=== PATIENT | male | born 1980 | race Caucasian/White ===

== ENCOUNTER 2023-11-03 10:25 | Emergency (ER) | payer OTHER, MEDICAID ==
[~2023-11-03] VITALS: Ht 188 cm; Wt 136.1 kg
[2023-11-03] MEDS ORDERED: DIPHTH,PERTUSS(ACELL),TET VAC 0.5 ML VIAL (Tdap) I.M. ONE (10:30)
[2023-11-03 10:34] VITALS: BP_SYST 128; PULSE 78; RESP 18; TEMP 97.7; O2SAT 96
[2023-11-03] MEDS ORDERED: BACITRACIN 1 GM OINT TP ONE (11:00)
[2023-11-03] MEDS: LIDOCAINE 1% 10 MG/ML, 20 ML MDV INJ ONE (11:27)
[2023-11-03 12:15] VITALS: BP_SYST 128; PULSE 78; RESP 18; TEMP 97.7; O2SAT 96
== END 2023-11-03 12:14 | disposition home or self-care (01) ==
LOC: SED 10:25
DX: S01.81XA Laceration without foreign body of other part of head, initial encounter (principal); M54.2 Cervicalgia; V49.9XXA Car occupant (driver) (passenger) injured in unspecified traffic accident, initial encounter; Y93.89 Activity, other specified; Y92.89 Other specified places as the place of occurrence of the external cause; Y99.8 Other external cause status
CPT/HCPCS: 70450-TC; 72125-TC; 99284

== ENCOUNTER 2023-11-10 07:41 | Emergency (ER) | payer MEDICAID, OTHER ==
[~2023-11-10] VITALS: Ht 190.5 cm; Wt 129.3 kg
[2023-11-10 08:10] VITALS: BP_SYST 135; PULSE 77; RESP 16; TEMP 97.7; O2SAT 94
[2023-11-10 08:31] VITALS: BP_SYST 135; PULSE 77; RESP 16; TEMP 97.7; O2SAT 94
[2023-11-10] MEDS: HYDROmorphone 2 MG/ML VIAL ONE (10:02)
== END 2023-11-10 08:32 | disposition home or self-care (01) ==
LOC: SED 07:41
DX: S01.81XD Laceration without foreign body of other part of head, subsequent encounter (principal); Z48.02 Encounter for removal of sutures; X58.XXXD Exposure to other specified factors, subsequent encounter
CPT/HCPCS: 99281; J1170